=== PATIENT | male | born 1970 | race Caucasian/White ===

== ENCOUNTER 2018-02-24 09:01 | Emergency (ER) | payer OTHER ==
[~2018-02-24] VITALS: Ht 180.3 cm; Wt 93.0 kg
[~2018-02-24 09:01] MED LIST: LEVOTHYROXINE175 MCG PO
--- NOTE | 2018-02-24 11:09 | ED PSYCHIATRIC COMPLAINT ---
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 STATES WHILE AT WORK HE STARTED TO HYPERTENTIALTE AND HAD TINGLING IN HIS BIALTERAL ARMS AND LEGS. DENEIS ANY PAIN. Triage Nurses Notes Reviewed? yes Onset: Abrupt Duration: minute(s):, better, constant, changing over time, continues in ED Timing: single episode today Severity: severe HPI: Patient presents for evaluation of an anxiety exacerbation that occurred at work. The patient has been under a lot of stress recently including a divorce. Patient states that he has had anxiety for "long time" but that he has been "suppressing it". Patient is not currently being treated for anxiety. He was treated in the past for anxiety. Patient's episode today involved tingling and numbness in the arms and legs and rapid breathing along with diaphoresis chest pain and difficulty concentrating. Also patient states he had abdominal pain that has resolved. Past History Travel History Traveled to [place] past 21 day No Medical History Any Pertinent Medical History? 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 No Review of Systems Review of Systems Constitutional: Reports: no symptoms. EENTM: Reports: no symptoms. Respiratory: Reports: no symptoms. Cardiovascular: Reports: no symptoms. GI: Reports: no symptoms. Genitourinary: Reports: no symptoms. Musculoskeletal: Reports: no symptoms. Skin: Reports: no symptoms. Neurological/Psychological: Reports: see HPI. Hematologic/Endocrine: Reports: no symptoms. Immunologic/Allergic: Reports: no symptoms. All Other Systems: Reviewed and Negative Physical Exam Physical Exam General Appearance: SEE BELOW Neurological/Psychiatric: SEE BELOW Comments: Gen.: Well-nourished, well-developed, no acute respiratory distress. Head: Normocephalic, atraumatic. Eyes: Normal inspection bilaterally Ears: Normal inspection bilaterally Nose: Normal inspection Throat/mouth : Moist mucosa Neck: Supple, full range of motion, no goiter Lungs: Quiet respirations Back: Normal range of motion Extremities: Normal range of motion grossly, no cyanosis clubbing or edema of the upper extremities Neurologic: Cranial nerves grossly intact, speech is clear Skin: warm and dry Psychiatric: Calm, cooperative, no apparent delusions or hallucinations SAD PERSONS Done? patient not suicidal Progress Differential Diagnosis: hypoglycemia, aNXIETY, DEPRESSION, BIPOLAR DISORDER, STRESS Plan of Care: See discharge instructions Comments: The patient confirms that he is having a lot of stress secondary to a divorce and the impact is having on his children. He states his daughter is also experiencing some emotional issues as well. I feel the patient's clinical presentation is consistent with an acute anxiety attack. He is amenable to a trial of a benzodiazepine and follow-up with his primary care physician. Departure Departure Disposition: HOME OR SELF CARE Condition: Stable Clinical Impression Primary Impression: Anxiety Referrals: Liliana REYNOLDS,Wilmer Mccarthy (PCP/Family) Additional Instructions: Xanax as prescribed for anxiety. Follow-up with your primary care physician for reevaluation next week. Return if any concerns or sudden worsening. Thank you for choosing the [facility] for your care. It was a pleasure to serve you today. Fer Quintero M.D. [facility] Departure Forms: Customer Survey General Discharge Information Prescriptions: Current Visit Scripts Alprazolam (Xanax) 1 TAB PO BIDP PRN anxiety #10 TAB
[2018-02-24] MEDS ORDERED: XANAX0.25 M1 PO (11:27)
[2018-02-24 11:42] VITALS: BP 140/80
== END 2018-02-24 11:42 ==
LOC: ERH 09:01
DX: F41.9 Anxiety disorder, unspecified (principal); E03.9 Hypothyroidism, unspecified